=== PATIENT | male | born 1965 | race Two or more races ===

== ENCOUNTER → 2021-05-28 | Day surgery (SDC) | payer OTHER ==
[~2021-05-28] VITALS: Ht 185.4 cm; Wt 97.5 kg
[~2021-05-28] MED LIST: ATOR10TA52 PO; BUPIVACAINE 0.25% INJ 50ML VIAL ONE; DexAMETHasone SOD PHOS 10MG/1ML VIAL INJ ONE; GLYCOPYRROLATE 0.2 MG/ML 1ML VIAL ONE; HYDROmorphone HCL 2 MG/ML VL ONE; LIDOCAINE 1% HCL (LOCAL ANESTH.) INJ 20ML MDV ONE; META-167 PO; METOCLOPRAMIDE HCL 5MG/ml INJ 2ml VIAL IV PRN; MIDAZOLAM HCL 2MG/2ML 2ml VIAL (1mg/ml) ONE; MORPHINE SULFATE 4 MG/ML SYR/VIAL IV PRN; NAP500T PO; NEOSTIGMINE 1 MG/ML INJ (10mg/10ML VIAL) ONE; OMEP20TA PO; ONDANSETRON HCL 4 MG/2 ML VIAL ONE; PROPOFOL 10 MG/ML 20 ML IV ONE; ROCURONIUM 10MG/ML 10ML VIAL IV ONE; SODIUM CHLORIDE LOCK 10 ML ONE; SUCCINYLCHOLINE CHLORIDE 20 MG/ML 10ML VIAL IV ONE; TRAZ-181 PO; ceFAZolin 1GM VL ONE; ceFAZolin 1GM/50ML 50 ML IV ONE; fentaNYL CITRATE 100 MCG/2 ML VL ONE; fentaNYL CITRATE 5 ML ONE
[2021-05-28] MEDS: HYDROmorphone HCL 2 MG/ML VL IV PRN ×4 (11:49→12:19)
[2021-05-28 12:30] VITALS: BP 137/84
== END | disposition home or self-care (01) ==
LOC: SUR 06:36
PROVIDERS: ATTEND Surgery
DX: K40.20 Bilateral inguinal hernia, without obstruction or gangrene, not specified as recurrent (principal); E78.5 Hyperlipidemia, unspecified; G89.29 Other chronic pain; Z20.822 Contact with and (suspected) exposure to COVID-19
CPT/HCPCS: 49650; 86850; 86900; 86901; C1713; C1781; J0330; J0690; J1100; J1170; J2250; J2405; J2704; J2765; J3010; J3490; J7030; S2900; U0003; J2001

== ENCOUNTER 2022-11-25 11:18 | Emergency (ER) | payer OTHER ==
[~2022-11-25] VITALS: Ht 185.4 cm; Wt 95.2 kg
[~2022-11-25 11:18] MED LIST changes: -BUPIVACAINE 0.25% INJ 50ML VIAL ONE; -DexAMETHasone SOD PHOS 10MG/1ML VIAL INJ ONE; -GLYCOPYRROLATE 0.2 MG/ML 1ML VIAL ONE; -HYDROmorphone HCL 2 MG/ML VL ONE; -LIDOCAINE 1% HCL (LOCAL ANESTH.) INJ 20ML MDV ONE; -META-167 PO; +META5TAB PO; -METOCLOPRAMIDE HCL 5MG/ml INJ 2ml VIAL IV PRN; -MIDAZOLAM HCL 2MG/2ML 2ml VIAL (1mg/ml) ONE; -MORPHINE SULFATE 4 MG/ML SYR/VIAL IV PRN; -NEOSTIGMINE 1 MG/ML INJ (10mg/10ML VIAL) ONE; -ONDANSETRON HCL 4 MG/2 ML VIAL ONE; -PROPOFOL 10 MG/ML 20 ML IV ONE; -ROCURONIUM 10MG/ML 10ML VIAL IV ONE; -SODIUM CHLORIDE LOCK 10 ML ONE; -SUCCINYLCHOLINE CHLORIDE 20 MG/ML 10ML VIAL IV ONE; -ceFAZolin 1GM VL ONE; -ceFAZolin 1GM/50ML 50 ML IV ONE; -fentaNYL CITRATE 100 MCG/2 ML VL ONE; -fentaNYL CITRATE 5 ML ONE
[2022-11-25 11:59] VITALS: BP 133/88; PULSE 65; RESP 18; TEMP 97.6; O2SAT 98
[2022-11-25] MEDS ORDERED: AUG875T PO (13:02)
[2022-11-25] MEDS ORDERED: PRED20TA2 PO (13:02)
== END 2022-11-25 13:05 | disposition home or self-care (01) ==
LOC: ER 11:18
DX: G51.0 Bell's palsy (principal); H66.92 Otitis media, unspecified, left ear; Z79.899 Other long term (current) drug therapy
CPT/HCPCS: 70450